=== PATIENT | male | born 1940 | race Caucasian/White ===

== ENCOUNTER 2020-06-24 10:27 | Emergency (ER) | payer MEDICARE, BC, SELFPAY ==
[2020-06-24] VITALS (44 sets, daily range): BP systolic 162–192; BP diastolic 61–75; PULSE 49–63; RESP 10–20; TEMP 36.4; O2SAT 95–100
--- NOTE | 2020-06-24 10:15 | RT.EKG_ITS ---
APPROVED REPORT Exam: Resting ECG Patient Location: E HR:52 bpm ECG Measurements Heart Rate 52 AXIS NE 212 P 28 QRSd 95 QRS -27 QT 434 T 20 QTc 405 Conclusion Sinus bradycardia...rate< 60 Borderline prolonged NE interval...NE >212, V-rate 50- 90 Left ventricular hypertrophy...multiple voltage criteria Physician: No STEMI
--- NOTE | 2020-06-24 10:15 | RT.EKG_ITS ---
APPROVED REPORT Exam: Resting ECG Patient Location: E HR:53 bpm ECG Measurements Heart Rate 53 AXIS MT 90 P 0 QRSd 93 QRS -13 QT 439 T 47 QTc 410 Conclusion Sinus bradycardia...rate< 60 Physcian: no stemi, intervals unremarkable
--- NOTE | 2020-06-24 10:46 | W.ED.GENAD ---
Discharge Plan Disposition Patient Disposition: HOME Condition: Stable Discharge Details Clinical Impression: Chest pain, Grief reaction Primary Care Provider: Odalis,Local ED Provider: Raegan Aguila Home Meds and New Rx's Prescriptions: New lorazepam 0.5 mg tablet 0.5 mg PO QHS PRN (Reason: anxiety) Qty: 3 RF: 0 Continued aspirin 325 mg Tablet 325 mg PO DAILY RF: 0 amlodipine 5 mg Tablet 5 mg PO DAILY RF: 0 simvastatin 40 mg Tablet 40 mg PO QHS RF: 0 tamsulosin [Flomax] 0.4 mg Capsule 0.4 mg PO DAILY RF: 0 paroxetine HCl [Paxil] 20 mg Tablet 20 mg PO DAILY RF: 0 nitroglycerin 0.4 mg Tablet, Sublingual 0.4 mg SUBLINGUAL Q5-15M PRNRF: 0 ranitidine HCl 150 mg Capsule 150 mg PO BID RF: 0 finasteride 5 mg Tablet 5 mg PO DAILY RF: 0 Discharge Instructions Instructions: Chest Pain (ED), Grief and Loss (ED) Additional Instructions: Follow up with primary care provider in 3-5 days. Return to ED sooner if any worsening or concerns. Increase oral fluids. Please return to the ED for any recurrent chest pain, any dizziness, or concern. Repeat troponin was negative, EKG looks good. At this time I will prescribe you a few tablets of an antianxiety medication, do not drink alcohol with this medication and do not operate heavy machinery as it may make you sleepy. Medical Decision Making 79-year-old male presents to the ER with chief complaint of chest pain. He reports this began approximately 1 and half hours prior to arrival. He describes midsternal chest pain with some mild shortness of breath, he did take 3 nitros over approximately half hour which did not relieve his pain. He reports having increased lightheadedness after taking the nitro. He does have a history of coronary artery disease, he has had a stent placed at [facility], is also has a history of brain cancer with tumor removal approximately 6 years ago, he also has a history of carotid stenosis which has been repaired. Cardiac work-up ordered including for baby aspirin, CBC, CMP, serial troponins, chest x-ray. 1157: Patient reevaluation, reports that chest pain is now gone. He is resting quietly in bed easily awakens. Discussed plan of care for repeat troponin at approximately 130, verbalized understanding. 1411: Serial troponin came back negative, less than 0.05. Discussed results with patient he has not had any more complaints of chest pain. At this time I do feel like patient symptoms are more related to grief and stress reaction. I do feel it is safe for him to be discharged home. We will call family and inform them of patient's discharge. HPI General Mode of arrival: wheelchair. Date/Time Provider Initiated Documentation: 06/24/20 10:28. Limitations to Documentation: no limitations. Information obtained by: patient. HPI Narrative: 79-year-old male presents to the ER with chief complaint of chest pain. He reports this began approximately 1 and half hours prior to arrival. He describes midsternal chest pain with some mild shortness of breath, he did take 3 nitros over approximately half hour which did not relieve his pain. He reports having increased lightheadedness after taking the nitro. He does have a history of coronary artery disease, he has had a stent placed at [facility], is also has a history of brain cancer with tumor removal approximately 6 years ago, he also has a history of carotid stenosis which has been repaired. Related Data Home Medications Medication Instructions Recorded Confirmed amlodipine 5 mg PO DAILY 06/24/20 06/24/20 aspirin 325 mg PO DAILY 06/24/20 06/24/20 finasteride 5 mg PO DAILY 06/24/20 06/24/20 lorazepam 0.5 mg PO QHS PRN #3 tab 06/24/20 nitroglycerin 0.4 mg SUBLINGUAL Q5-15M PRN 06/24/20 06/24/20 paroxetine HCl [Paxil] 20 mg PO DAILY 06/24/20 06/24/20 ranitidine HCl 150 mg PO BID 06/24/20 06/24/20 simvastatin 40 mg PO QHS 06/24/20 06/24/20 tamsulosin [Flomax] 0.4 mg PO DAILY 06/24/20 06/24/20 Previous Rx's Medication Instructions Recorded lorazepam 0.5 mg PO QHS PRN #3 tab 06/24/20 Allergies Allergy/AdvReac Type Severity Reaction Status Date / Time No Known Allergies Allergy Unverified 06/24/20 10:40 General Stated Complaint: Chest Pain LUIS: 2 Review of Systems Narrative: Constitutional: Negative for weight loss, alert and oriented, well groomed, normal body habitus, appears comfortable. HEENT: Denies trauma, headaches, blurry vision, nasal discharge, sore throat, trouble swallowing. Chest: Denies palpitations, irregular rhythm, positive chest pain. Respiratory: Denies cough, hemoptysis. GI: Denies abdominal pain, nausea, vomiting, diarrhea, constipation. : Denies dysuria, hematuria, flank pain, rectal bleeding. Neuro: Denies blurry vision, weakness, syncope, headache or facial numbness. Hematologic: Denies easy bruising, intolerance to heat or cold, hair loss. [facility] Social History Smoking/Tobacco Use Status: Never Smoking risk assessment performed?: Yes Alcohol Intake: current Alcohol Intake frequency: holidays/special occasions only Alcohol type: wine Drug use: Never Substance use type: does not use Do you feel safe at home: Yes Do you feel safe in your relationship?: Yes Exam Narrative Exam Narrative: Constitutional: Alert and oriented x3. Appears stated age. Normal body habitus. Head: Normocephalic, no trauma. Eyes: Pupils PERRLA, Red reflex noted, EOM's intact. Eyelids symmetrical without lesions, discharge, or swelling. ENT: Bilateral TM's WNL, External ear normal to inspection, no mastoid TTP, swelling, or erythema, Nasal turbinates WNL, no nasal discharge. Normal dentition, Posterior pharynx WNL, no exudate. Chest: RRR, Normal S1, S2, distal pulses intact. Resp: Lungs clear to auscultation bilaterally, no wheezes, rales, or rhonchi. Musculoskeletal: Normal gait, 5/5 strength to all four extremities. Skin: No suspicious rashes or lesions. Capillary refill less than 2 sec. Neurologic: Cranial nerves II-XII intact. Alert and oriented x 3. DTR's intact. Hematologic/Lymphatic: No ecchymosis, no lymphadenopathy. Course Vital Signs Vital signs: Vital Signs Temperature 36.4 C L 06/24/20 10:35 Pulse 55 L 06/24/20 10:35 Respiratory Rate 14 06/24/20 10:35 Blood Pressure 176/74 H 06/24/20 10:35 Pulse Oximetry 100 06/24/20 10:35 Temperature 36.4 C L 06/24/20 10:35 Temperature Source Temporal Artery Scan 06/24/20 10:35 Pulse 55 L 06/24/20 10:35 Respiratory Rate 14 06/24/20 10:35 Respiratory Effort Non-Labored 06/24/20 10:39 Blood Pressure 176/74 H 06/24/20 10:35 Blood Pressure Position Supine 06/24/20 10:35 Pulse Oximetry 100 06/24/20 10:35 Oxygen Delivery Method Room Air 06/24/20 10:35 Oxygen Flow Rate 0 06/24/20 10:35 Pain Level 5 06/24/20 10:35
[2020-06-24 10:48] LABS: Abs Immature Grans 0.02 10^3/uL (0.0-0.06); Absolute Basophil Count 0.02 10^3/uL (0.0-0.2); Absolute Eosinophil Count 0.13 10^3/uL (0.0-0.7); Absolute Lymphocyte Count 1.68 10^3/uL (1.2-3.4); Absolute Monocyte Count 0.76 10^3/uL (0.1-0.8); Absolute Neutrophil Count 3.86 10^3/uL (1.2-6.7); Basophils % 0.3; HCT 40.5 % (40.0-50.0); HGB 13.6 g/dL (13.5-17.5); Immature Grans % 0.3; MCH 29.4 pg (27.0-33.0); MCHC 33.6 % (32.0-36.0); MCV 87.5 fL (80-95); MPV 10.5 fL (8.0-11.0); Monocytes % 11.7; Neutrophils % 59.7; Nucleated RBC 0 %; Platelet Count 221 10^3/uL (130-400); RBC 4.63 10^6/uL (4.36-5.78); RDW 13.2 % (11.8-14.1); RDW-SD 41.8 fL; WBC 6.47 10^3/uL (4.4-10.8)
[2020-06-24] MEDS: Aspirin 81 MG CHEW 324 MG CH (10:59)
[2020-06-24 11:07] LABS: ALT 29 U/L (16-63); AST 20 U/L (15-37); Albumin 3.7 g/dL (3.4-5.0); Alkaline Phosphatase 83 U/L (46-116); Anion Gap 7.8 mmol/L (3-11); BUN 21 mg/dL (7-18); Bilirubin, Total 0.5 mg/dL (0.2-1.0); CO2 29.2 mmol/L (21.0-32.0); Chloride 103 mmol/L (98-107); Estimated GFR 53.25 (mL/min/1.73m2); Glucose 122 mg/dL (74-106); Magnesium 2.2 mg/dL (1.8-2.4); Potassium 4.1 mmol/L (3.5-5.1); Sodium 140 mmol/L (136-145); Total Protein 7.7 g/dL (6.4-8.2)
[2020-06-24 11:08] LABS: Troponin I < 0.05 ng/mL (<0.06)
--- NOTE | 2020-06-24 11:24 | DI.RAD_ITS ---
EXAM: XR PORTABLE CHEST AP CLINICAL HISTORY: Chest pain, SOB TECHNIQUE: COMPARISON: No exams were available for comparison FINDINGS: Portable AP chest was obtained. There may be mild cardiomegaly. Lungs are generally clear and well expanded.. No pleural effusion identified on this frontal film. IMPRESSION: Question mild cardiomegaly, no evidence of acute process. RADIATION DOSE DELIVERED: Total DLP
--- NOTE | 2020-06-24 11:51 | DI.VRAD_ITS ---
PROCEDURE INFORMATION: Exam: XR Chest, 1 View Exam date and time: 06/24/2020 11:25 AM Age: 79 years old Clinical indication: On breathing; Patient HX: Chest pain, SOB TECHNIQUE: Imaging protocol: XR of the chest Views: 1 view. COMPARISON: No relevant prior studies available. FINDINGS: Lungs: Unremarkable. No consolidation. Pleural space: Unremarkable. No pleural effusion. No pneumothorax. Heart/Mediastinum: Cardiac silhouette is borderline in size. Bones/joints: Unremarkable. IMPRESSION: No acute pulmonary abnormality. Borderline enlarged cardiac silhouette. Dictated and Authenticated by: Derrick Michael MD. Ordering:BISHOP Carlin MD
[2020-06-24] MEDS: LORazepam 0.5 MG TAB PO (12:06)
[2020-06-24 14:02] LABS: Troponin I < 0.05 ng/mL (<0.06)
== END 2020-06-24 14:43 | disposition home or self-care (01) ==
PROVIDERS: Emergency Provider Registered Nurse Emergency
DX: R07.89 Other chest pain (principal); F43.8 Other reactions to severe stress; R06.02 Shortness of breath; I25.10 Atherosclerotic heart disease of native coronary artery without angina pectoris; Z95.5 Presence of coronary angioplasty implant and graft
CPT/HCPCS: 36415; 80053; 93005; 99285; 71045; 83735; 84484; 85025; 93010; 99284